=== PATIENT | female | born 1990 | race Hispanic/Latino ===

== ENCOUNTER 2017-10-04 00:19 | Emergency (ER) | payer MEDICAID ==
[2017-10-04] MEDS ORDERED: TYLENOL PO ONE (03:45)
[2017-10-04] MEDS ORDERED: TYLENOL ONE (03:47)
[2017-10-04 04:02] LABS: Alanine Aminotransferase 16 units/L (7-56); Albumin 2.8 g/dL (3.9-5); BUN/Creatinine Ratio 13; Blood Urea Nitrogen 4 mg/dL (7-17); Calcium 8.4 mg/dL (8.4-10.2); Hemolysis Index 1
[2017-10-04 04:03] LABS: Hematocrit 35.8 % (30.3-42.9); Hemoglobin 11.3 gm/dl (10.1-14.3); Mean Corpuscular HGB Conc 32 % (30-34); Mean Corpuscular Volume 81 fl (79-97); Platelet Count 230 K/mm3 (140-440); Red Blood Count 4.43 M/mm3 (3.65-5.03)
[2017-10-04 04:13] LABS: Mean Corpuscular Hemoglobin 26 pg (28-32)
[2017-10-04 05:18] LABS: Band Neutrophils # (Manual) 0.9 K/mm3; Basophils % (Manual) 0 % (0.0-1.8); Eosinophils % (Manual) 0 % (0.0-4.3); Total Cells Counted 100
[2017-10-04 05:19] LABS: Anisocytosis 1+; Hypochromasia 1+
[2017-10-04 06:02] VITALS: BP 135/82
--- NOTE | 2017-10-04 07:31 | Ultrasound Report ---
FINAL REPORT EXAM: US OB > = 14 WEEKS FETUS HISTORY: abd pain COMPARISONS: None. FINDINGS: Grayscale, color and M-mode transabdominal limited 2nd trimester ultrasound Single living intrauterine with recorded cardiac activity of 154 beats per minute. Amniotic fluid volume is subjectively normal. The cervix appears closed and measures approximately 3.2 cm in length. Posterior placenta. No evident previa. Heterogeneous hypoechoic uterine fundal fibroid is suggested without internal flow on color Doppler measuring up to 13 cm. Estimated gestational age is 18 weeks 1 day with delivery date of 03/06/2018, which is concordant with reported last menstrual period dating of 18 weeks 0 days. Estimated weight is 240 grams, which corresponds to the 73rd percentile. Biparietal diameter is 3.7 cm Head circumference is 15.4 cm Abdominal circumference is 13.5 cm Femoral length is 2.6 cm IMPRESSION: Single living intrauterine with estimated gestational age of 18 weeks 1 day and no acute complication identified. Consider additional imaging for worsening/persistent symptoms. Large uterine fundal fibroid is suggested measuring up to 13 cm. There is no obvious mass effect on the gestational sac. Follow-up more detailed anatomy scan is recommended at 20 weeks gestational age. Relationship between the gestational sac and uterine fundal mass can be further delineated at that time.
== END 2017-10-04 15:40 | disposition left against medical advice (07) ==
LOC: ED 00:19
DX: R10.9 Unspecified abdominal pain (principal); Z53.21 Procedure and treatment not carried out due to patient leaving prior to being seen by health care provider
CPT/HCPCS: 36415; 76805; 80053; 84702; 85007; 85025